=== PATIENT | male | born 1935 | race Caucasian/White ===

== ENCOUNTER → 2021-08-26 09:11 | Outpatient (CLI) | payer MEDICARE, OTHER, SELFPAY ==
[2021-08-26 09:58] LABS: Basophils # 0.1 K/mm3 (0-0.2); Basophils % 2.1 % (0.1-2.0); Eosinophils # 0.1 K/mm3 (0.0-0.4); Eosinophils % 1.5 % (0.1-12.0); Hematocrit 47.2 % (42.0-52.0); Hemoglobin 14.4 g/dL (14.1-18.0); Lymphocytes % 24.5 % (10-50); Mean Corpuscular HGB Conc 30.6 g/dL (31.8-35.4); Mean Corpuscular Hemoglobin 31.9 pg (27.0-31.2); Mean Corpuscular Volume 104.2 fl (80-94); Mean Platelet Volume 9.4 fl (7.4-10.4); Monocytes # 0.4 K/mm3 (0.1-1.0); Monocytes % 8.4 % (1.7-9.3); Neutrophils # 2.7 K/mm3 (1.8-7.8); Neutrophils % 63.5 % (37.0-80.0); Platelet Count 240 K/mm3 (142-424); Red Blood Count 4.53 M/mm3 (4.60-6.20); Red Cell Distribution Width 13.7 % (11.5-17.5); White Blood Count 4.2 K/mm3 (4.8-10.8)
[2021-08-26 11:28] LABS: Chloride 101 mmol/L (98-107); Potassium 4.5 mmoL/L (3.5-5.1); Sodium 133 mmol/L (136-145)
[2021-08-26 11:30] LABS: Alanine Aminotransferase 27 U/L (12-78); Alkaline Phosphatase 118 U/L (38-126); Anion Gap 9.5 mEq/L (5-15); Aspartate Amino Transferase 37 U/L (17-59); Bilirubin,Total 1.2 mg/dl (0.2-1.3); Blood Urea Nitrogen 20 mg/dl (9-20); Carbon Dioxide 27 mmol/L (22.0-30.0); Estimated Glomerular Filt Rate 64 ml/min (>60); GFR (African American) 77 ML/MIN (>60)
[2021-08-26 11:31] LABS: Albumin Level 4.3 g/dl (3.5-5.0); Albumin/Globulin Ratio 1.6 (1.1-1.8); Calcium 8.9 mg/dl (8.4-10.2); Cholesterol 190 mg/dl (140-200); Globulin 2.7 g/dL (1.3-3.2); Glucose 79 mg/dl (74-100); HDL Cholesterol 71 mg/dl (40-60); Iron 171 ug/dL (49-181); Triglycerides 60 mg/dl (30-150); VLDL Cholesterol 12 mg/dL (0-40)
[2021-08-26 11:33] LABS: Chol/HDL Ratio 2.7 (1-3.5)
[2021-08-26 11:43] LABS: Direct LDL Cholesterol 97.39 mg/dL (100-129)
[2021-08-26 11:49] LABS: T4 (Thyroxine) 7.6 ug/dl (5.53-11.0)
[2021-08-26 11:54] LABS: 25-OH Vitamin D, Total 60.9 ng/mL (30-100)
[2021-08-26 12:02] LABS: Thyroid Stimulating Hormone 3.77 uIU/mL (0.465-4.68)
[2021-08-26 13:01] LABS: Vitamin B12 967 pg/mL (239-931)
[2021-08-26 13:17] LABS: Folate > 20.00 ng/mL
== END ==
PROVIDERS: Visit Provider Family Medicine
DX: I10 Essential (primary) hypertension (principal); R53.83 Other fatigue; R27.0 Ataxia, unspecified
CPT/HCPCS: 36415; 80053; 80061; 82306; 82607; 82746; 83540; 84436; 84443; 85025

== ENCOUNTER → 2021-12-18 09:31 | Outpatient (CLI) | payer MEDICARE, OTHER, SELFPAY | PROVIDERS: PCP Family Medicine; Visit Provider Family Medicine | DX: Z01.84 Encounter for antibody response examination (principal) | CPT/HCPCS: 36415 ==

== ENCOUNTER → 2022-03-02 16:00 | Outpatient (CLI) | payer MEDICARE, OTHER, SELFPAY ==
--- NOTE | 2022-03-02 16:06 | XR_ITS ---
FINAL REPORT CLINICAL HISTORY: Cough, unspecified FINDINGS: Two views of the chest were obtained. The heart size and pulmonary vascularity are within normal limits. The mediastinum is normal. No acute pulmonary abnormality is identified. There is no pneumothorax. The bony thorax is intact. There is rightward curvature in the midthoracic spine. IMPRESSION: No active cardiopulmonary disease. Reviewed, Interpreted and Dictated by Waldemar Virgen III, MD Transcribed by Daya Limon Authenticated and [facility]
== END ==
PROVIDERS: PCP Family Medicine; Visit Provider Family Medicine
DX: R05.9 Cough, unspecified (principal)
CPT/HCPCS: 71046

== ENCOUNTER 2024-04-05 10:54 | Outpatient (RCR) | payer MEDICARE, OTHER, SELFPAY | END 2024-04-05 23:59 | disposition home or self-care (01) | LOC: PT 10:54 | PROVIDERS: Visit Provider Internal Medicine | DX: R26.9 Unspecified abnormalities of gait and mobility (principal) | CPT/HCPCS: 97163 ==